=== PATIENT | male | born 1960 | race African-American/Black ===

== ENCOUNTER 2018-09-04 02:29 | Emergency (ER) | payer OTHER ==
[~2018-09-04] VITALS: Ht 175.3 cm; Wt 73.0 kg
[2018-09-04 02:31] VITALS: BP 110/69
== END 2018-09-04 03:28 | disposition home or self-care (01) ==
LOC: ED 03:25
DX: K40.91 Unilateral inguinal hernia, without obstruction or gangrene, recurrent (principal); F17.200 Nicotine dependence, unspecified, uncomplicated
CPT/HCPCS: 99281